=== PATIENT | female | born 1985 | race Two or more races ===

== ENCOUNTER 2019-05-07 07:33 | Outpatient (CLI) | payer MEDICAID ==
--- NOTE | 2019-05-07 11:10 | Ultrasound Report ---
Reason: UTERINE SIZE DATE DISCREPANCY , UNSP. TRI Procedure Date: 05/07/2019 Accession Number: [id number] / [id number] Procedure: US - OB F/U or Repeat CPT Code: FULL RESULT: EXAM: FOLLOW-UP OBSTETRICAL ULTRASOUND EXAM DATE: 05/07/2019 08:50 AM. CLINICAL HISTORY: Uterine size/date discrepancy . COMPARISON: None. TECHNIQUE: Real-time sonographic evaluation of the fetus performed by the escort service attendant. Multiple pharmaceutical specialty representative static images were saved for review. DATING: Established EGA 33 weeks 6 days with CHRIS 06/19/2019 based on working due date. EGA 34 weeks 6 days with CHRIS 06/12/2019 based on the current ultrasound. GENERAL EVALUATION Recio . Cardiac activity: 135 bpm. movement: Visualized. Presentation: Cephalic. Placenta: Anterior position. Amniotic fluid: Normal. JAMES 13 cm. MVP 5.5 cm. BIOMETRY Bi-Parietal Diameter (BPD): 8.4 cm, 33 weeks 6 days Head Circumference (HC): 32.9 cm, 37 weeks 3 days Abdominal Circumference (AC): 32 cm, 36 weeks 0 days Femur Length (FL): 6.2 cm, 32 weeks 2 days Estimated Weight: 2552 g, 75th percentile for 33 weeks 6 days. MATERNAL STRUCTURES Cervix is long and closed, 5.2 cm. IMPRESSION: 1. Recio live intrauterine with gestational age 33 weeks 6 days based on working due date. 2. Estimated weight is within expected limits for assigned dating. RADIA
== END 2019-05-07 07:34 | disposition home or self-care (01) ==
LOC: DI 07:33
PROVIDERS: ATTEND Obstetrics & Gynecology
DX: O26.843 Uterine size-date discrepancy, third trimester (principal); Z3A.33 33 weeks gestation of pregnancy
CPT/HCPCS: 76816

== ENCOUNTER 2019-05-16 10:39 | Outpatient (CLI) | payer MEDICAID | END 2019-05-16 23:59 | disposition home or self-care (01) | LOC: LAB.R 10:39 | PROVIDERS: ATTEND Obstetrics & Gynecology | DX: O09.523 Supervision of elderly multigravida, third trimester (principal) | CPT/HCPCS: 87797 ==

== ENCOUNTER 2019-06-16 15:32 | Outpatient (CLI) | payer MEDICAID ==
[2019-06-16 15:50] VITALS: BP 122/86
--- NOTE | 2019-06-21 04:34 | PROCEDURE REPORT ---
- HPI Current EDU 06/19/19 Gestation 39 Weeks and 4 Days 2 Para 1 Vital Signs Temperature 98.2 F 06/16/19 15:49 Heart Rate 83 06/16/19 15:49 Respiratory Rate 16 06/16/19 15:49 Blood Pressure 122/86 H 06/16/19 15:49 O2 Saturation 100 06/16/19 15:49 Temperature 98.2 F 06/16/19 15:49 Heart Rate 83 06/16/19 15:49 Respiratory Rate 16 06/16/19 15:49 Blood Pressure 122/86 H 06/16/19 15:49 O2 Saturation 100 06/16/19 15:49 - NST Procedure NST Procedure Start Date 06/16/19 Start Time 15:45 Stop Time 15:15 Vibroacoustic Stimulation Used No Patient States Movement Yes EFM 135 mod lyubov 15x15 accels no decels TOCO: quiet - Results and Plan Findings/Impression: Cat I tracing Plan: DC to home Warning signs reviewed Routine OB Fu
== END 2019-06-16 16:19 | disposition home or self-care (01) ==
LOC: WFO 15:32 → FBP 15:33 → WFO 16:19
PROVIDERS: ATTEND Obstetrics & Gynecology
DX: O09.523 Supervision of elderly multigravida, third trimester (principal); Z53.9 Procedure and treatment not carried out, unspecified reason
CPT/HCPCS: 59025

== ENCOUNTER 2019-06-18 05:47 | Inpatient (IN) | payer MEDICAID ==
[~2019-06-18 05:47] MED LIST: LACTATED RINGERS 1,000 ML IV SCH
[2019-06-18] MEDS ORDERED: SODIUM CHLORIDE FLUSH 0.9% 10 ML SYRINGE ONE (06:19)
[2019-06-18 07:10] LABS: BASOPHILS # (AUTO) 0.1 10^3/uL (0.0-0.1); BASOPHILS % (AUTO) 0.6 %; EOSINOPHILS # (AUTO) 0.1 10^3/uL (0.0-0.7); EOSINOPHILS % (AUTO) 1.1 %; HGB - HEMOGLOBIN 11.3 g/dL (12.0-16.0); LYMPHOCYTES # (AUTO) 1.8 10^3/uL (1.5-3.5); LYMPHOCYTES % (AUTO) 21.6 %; MEAN CORPUSCULAR HEMOGLOBIN 29.9 pg (27.0-31.0); MEAN CORPUSCULAR HGB CONC 33.7 g/dL (32.0-36.0); MEAN CORPUSCULAR VOLUME 88.6 fL (81.0-99.0); MEAN PLATELET VOLUME 10.8 fL (7.9-10.8); MONOCYTES # (AUTO) 0.5 10^3/uL (0.0-1.0); MONOCYTES % (AUTO) 5.7 %; NEUTROPHILS # (AUTO) 5.9 10^3/uL (1.5-6.6); NEUTROPHILS % (AUTO) 70.6 %; PLT - PLATELET COUNT 222 10^3/uL (130-450); RED BLOOD COUNT 3.78 10^6/uL (4.20-5.40); RED CELL DISTRIBUTION WIDTH 13.4 % (12.0-15.0); WHITE BLOOD COUNT 8.3 x10^3/uL (4.8-10.8)
[2019-06-18] MEDS ORDERED: CITRIC ACID/SODIUM CITRATE 15 ML UDC PO ONE ×2 (07:47→11:44)
--- NOTE | 2019-06-18 07:50 | ANESTHESIA ---
Pre-Anesthesia VS, & Labs - Diagnosis Previous C section - Procedure Repeat C section Height 5 ft 4 in Weight (kg) 86.183 kg - NPO >8 hours - Is Patient ?: Yes - Lab Results Current Lab Results: Laboratory Tests 06/18/19 06:50: WBC 8.3, RBC 3.78 L, Hgb 11.3 L, Hct 33.5 L, MCV 88.6, MCH 29.9, MCHC 33.7, RDW 13.4, Plt Count 222, MPV 10.8, Neut # (Auto) 5.9, Lymph # (Auto) 1.8, [place] # (Auto) 0.5, Eos # (Auto) 0.1, Baso # (Auto) 0.1, Absolute Nucleated RBC 0.00, Nucleated RBC % 0.0 Lab results reviewed: Yes Fish Bones: 06/18/19 06:50 Home Medications and Allergies Active Medications Cefazolin Sodium 2 gm/ Sodium (Chloride) 100 mls @ 200 mls/hr IV ONCE ONE Stop: 06/18/19 08:59 Lactated Ringer's (Lr) 1,000 mls @ 125 mls/hr IV .Q8H HILARIA Allergies/Adverse Reactions: Allergies Allergy/AdvReac Type Severity Reaction Status Date / Time No Known Drug Allergies Allergy Verified 06/16/19 15:47 Anes History & Medical History - Anesthetic History Anesthesia Complications: reports: No previous complications Family history of Anesthesia Complications: Denies Family history of Malignant Hyperthermia: Denies - Medical History Cardiovascular: reports: None Pulmonary: reports: None Gastrointestinal: reports: None Urinary: reports: None Neuro: reports: None Musculoskeletal: reports: None Endocrine/Autoimmune: reports: None Blood Disorders: reports: None Skin: reports: None Smoking Status: Former smoker Psychosocial: reports: No issues indicated - Surgical History General: Appendectomy, Other (Breast implants) Exam General: Alert Dental: WNL Mouth Openin Fingerbreadth Neck Mobility: Normal Mallampati classification: II Thyromental Distance: greater than 6 cm Respiratory: Lungs clear Cardiovascular: Regular rate Mental/Cognitive Status: Alert/Oriented X3 Cognitive Status: Within normal limits Plan Anesthesia Type: Spinal Consent for Procedure(s) Verified and Reviewed: Yes Code Status: Attempt Resuscitation ASA classification: 2-Mild systemic disease Is this case an emergency?: No
[2019-06-18] MEDS ORDERED: ceFAZolin 2 GM in SODIUM CHLORIDE 0.9% 100ML 100 ML IV ONE (08:30)
--- NOTE | 2019-06-18 08:38 | SURGERY HX AND PHYSICAL(T) ---
Surgical History & Physical - Chief Complaint/HPI History of Present Illness: CC: OB visit HPI: patient is here to see Dr Membreno for OB follow up. patient is here to PreOp on C section. patient reported clear discharge, back pain, with alot of pressure. patient report decrease in baby movement ...................................................................Nguyen Yeboah LPN June 16, 2019 3:02 PM Ms Wiggins presents for preop assessment for repeat scheduled for 06/18/19 She reports decreased movement. Baby is active, but less than usual. No contractions, VB, or LOF. No significant changes in health hx since time of prior exam. Current Allergies: No Known Allergies Current Meds: TUMS 500 MG ORAL TABLET CHEWABLE (CALCIUM CARBONATE ANTACID) Take on tablet by mouth as needed; Route: ORAL COMPLETE TABLET ( VIT-FE FUMARATE-FA TABS) Take one tablet by mouth once daily Risk Factors: Smoked Tobacco Use: Never smoker Smokeless Tobacco Use: Never Passive Smoke Exposure: no HIV High Risk Behavior: no Exercise: yes Times/wk: 8+ Type of Exercise: walking Seatbelt Use: 100 % Sun Exposure: rarely Alcohol Use: no Drug Use: no Vital Signs: Patient Profile: 34 Years Old Female Height: 66 inches Weight: 197.0 pounds BMI: 31.91 BP sittin / 75 Pt. in pain? no Vitals Entered By: Nguyen Yeboah LPN (June 16, 2019 3:02 PM) Meds Reviewed: Done Allergies Reviewed: Done Past Surgical History: Appendectomy (2011) Breast Reconstruction Flowsheet View for Follow-up Visit Estimated weeks of gestation: 39 4/7 Weight: 197.0 Blood pressure: 120 / 75 Fundal height: 40 FHR: 135 Vaginal bleeding: no Vaginal discharge: no activity: dec Labor symptoms: no position: vertex Next visit: 3 d SPANISH SPEAKING NANNY Review of Systems ROS Comments: As per HPI, otherwise remaining systems are negative. Physical Constitutional: alert, no acute distress. Skin: normal turgor, normal color. Head: atraumatic, normocephalic. Cardiovascular: RRR, no murmurs. Respiratory: no respiratory distress, clear to auscultation. Abdomen: gravid, S&NT Neurologic: normal. Psych: affect and mood appropriate, normal interaction. Impression & Recommendations: Problem # 1: Preop exam (ICD-V72.84) (ORD67-J84.818) Ms Emeli Nieves presented for preop exam for She declines certified court interpreter Risks, benefits, alternatives reviewed Consents for blood tranfusion as indicated obtained Consent for repeat obtained Cefazolin 2g IV OCTOR Orders: 050F - SUBSEQUENT VISIT (CPT-0502F) Problem # 2: Supervision of elderly multigravida, third trimester (ICD-V23.82) (AHV40-C38.523) Boy--> Jose ? A neg/ Rub imm IS wnl FAS wnl and normal echo US 05/07/19: vertex and 76%ile Glucola 168. --> I have reviewed the records and cannot find results for 3h OGTT Rhogam given 03/25/19 Unclear TDaP was received GBS neg Quantiferone Gold positive with a negative CXR Last pap 11/26/18 CS scheduled for 06/18/19 Intent for sterilization noted on page 49 of scanned outside records. May need [facility] consents prior to BTL Orders: 0502F - SUBSEQUENT VISIT (CPT-0502F) - PMH/PSH/Social Hx Neurological History: None Cardiovascular: None Respiratory: None Skin: None Endocrine/Autoimmune: None Gastrointestinal: None Urinary: None Musculoskeletal: None Blood Disorders: None General: Appendectomy, Other (Breast implants) Smoking Status: Former smoker - Home Meds and Allergies Allergies/Adverse Reactions: Allergies Allergy/AdvReac Type Severity Reaction Status Date / Time No Known Drug Allergies Allergy Verified 06/16/19 15:47 - Vital Signs O2 Saturation: 100 Weight (kg): 86.183 kg Height: 5 ft 4 in - Patient Review Patient Review: Problems were reviewed with the patient during this visit. Medications were reviewed with the patient during this visit. Allergies were reviewed this patient during this visit. Pertinent Tests Reviewed: All pertitent test for this patient were reviewed.
[2019-06-18] MEDS ORDERED: LACTATED RINGERS 1,000 ML IV ONE ×2 (09:24→20:50)
[2019-06-18] MEDS ORDERED: OXYTOCIN/DEXTROSE 5 % 30 UNIT/500 ML BAG IV PRN (10:16)
[2019-06-18] MEDS ORDERED: SODIUM CHLORIDE FLUSH 0.9% 10 ML SYRINGE IVP PRN (10:16)
[2019-06-18] MEDS ORDERED: ONDANSETRON 4 MG/2 ML VIAL IVP PRN (10:16)
[2019-06-18] MEDS: SODIUM CHLORIDE FLUSH 0.9% 10 ML SYRINGE IVP SCH ×2 (13:38→15:29)
--- NOTE | 2019-06-18 13:49 | OPERATIVE REPORT ---
DATE OF SERVICE: 06/18/2019 Physician: Byron Gutierrez DO PREOPERATIVE DIAGNOSES 1. Intrauterine at 39 weeks 6 days gestation. 2. Previous section. POSTOPERATIVE DIAGNOSES 1. Delivery at 39 weeks 6 days gestation. 2. Previous section. PROCEDURE: Repeat section with low transverse incision, delivery of a viable male w ith Apgars of 9 and 9. SURGEON: Byron Gutierrez DO RAGMAN: Joann Membreno MD who assisted with draping, retraction. ANESTHESIA: Spinal anesthetic. ESTIMATED BLOOD LOSS: 700 mL WOUND CLASSIFICATION: 1. Sponge count, needle counts were correct. HISTORY: For the clinical history, please see the H and P. SURGICAL FINDINGS: The uterus was densely adhesed to the anterior peritoneal surface. No other dist inct abnormalities were appreciated other than that. DESCRIPTION OF PROCEDURE: The patient was taken to the operative suite, placed on the surgical table in supine position under spinal anesthesia, rolled blanket was placed under the right hip. The roby ent was then prepped and draped in the usual fashion. After an appropriate timeout took place, a Pfa nnenstiel incision was then made with sharp dissection to the skin, both electrocautery and blunt dis section were then used to the level of fascia. The fascia was then incised transversely. The rectus musculature was then dissected free from the overlying rectus fascia using sharp and blunt dissectio n. A central muscle split was then performed. The peritoneal cavity was entered using a double hemo stat technique and incised vertically. The bladder blade was then placed over the lower pole of the incision. The serosa overlying the lower uterine segment was then incised transversely and a small b ladder flap developed. The myometrium was then scored with a scalpel blade and the amniotic cavity e ntered with blunt dissection. This revealed now clear amniotic fluid. The surgeon's fingers were pl aced in the wound and guided a bandage scissors to make a low transverse incision in the lower uterin e segment. The surgeon's hand was then placed into the wound and with gentle fundal pressure, the fe td head was elevated through the wound. A nuchal cord x1 was noted and reduced. The rest of the ne buster was then delivered with gentle fundal pressure and gentle traction. Upon full delivery of the , the was crying lustily and moving all of its limbs. Delayed cord clamping took plac e for 30 seconds. After this, the cord was doubly clamped and cut, and the passed off to [facility] nursing personnel and supervisor white sugar in attendance. is a viable male with Apgars of 9 and 9 at 1 and 5 minutes respectively. Weight is pending at this time. A sample of the cord blood was then obtained and sent for evaluation. The placenta was then delivered intact with 3 vessels spontan eously. The uterus was then explored and no retained products of conception were noted. The myometr ial incision was then reapproximated using 0 chromic suture in a running interlocking fashion. A sec ond layer of 0 chromic suture was used in a running simple fashion to imbricate the first layer. The re was a small area of oozing in the left lateral portion of the incision approximately 3 cm from the left lateral pole of the incision. This was rendered hemostatic with a single [id number] sutur e of 0 chromic suture. The paracolic gutters were then cleared of all blood clots and debris. Becau se of the dense adhesion that was holding the uterus anteriorly, the tubes and ovaries were not visua lized. The myometrial incision was then again viewed for any signs of bleeding, none were noted. He mostasis followed. The rectus fascia was then brought to the midline using 0 chromic suture in a sim ple interrupted fashion, and hemostasis followed. The fascia was then reapproximated using 0 Vicryl suture in a running simple fashion. Hemostasis followed. The skin was closed in a running subcuticu lar fashion using 4-0 Monocryl suture and hemostasis followed. Steri-Strips were placed and sterile dressings were placed and the patient was taken to recovery room in stable condition. TD: 06/18/2019 10:34
[2019-06-18] MEDS: KETOROLAC 30 MG/ML VIAL IVP SCH ×2 (15:28→21:40)
[2019-06-18] MEDS: LACTATED RINGERS 1,000 ML IV SCH ×2 (15:28→20:30)
[2019-06-18] MEDS: ACETAMINOPHEN 500 MG TABLET PO SCH ×2 (18:07→19:09)
[2019-06-19] MEDS: ACETAMINOPHEN 500 MG TABLET PO SCH ×3 (02:22→21:01)
[2019-06-19] MEDS: KETOROLAC 30 MG/ML VIAL IVP SCH ×2 (03:45→09:27)
[2019-06-19] MEDS: LACTATED RINGERS 1,000 ML IV SCH (05:56)
--- NOTE | 2019-06-19 07:53 | PROVIDER PROGRESS NOTE ---
Subjective - Prog Note Date Prog Note Date: 06/19/19 Prog Note Time: 07:51 - Subjective Subjective: The patient is actually doing quite well. She has been up to void since her Rosales was removed. She is breast-feeding without difficulty. She is passing flatus. She is without any other complaint. Objective - Vital Signs/Intake & Output Vital Signs: Vital Signs x48h Temp Pulse Resp BP Pulse Ox 06/19/19 02:00 36.5 C 63 18 100/55 L 99 Intake & Output: Intake & Output 06/16/19 06/17/19 06/18/19 06/19/19 23:59 23:59 23:59 23:59 Intake Total 8958.236 6016.333 Output Total 940 2450 Balance 335.000 -1106.667 - Lab Results Fish Bones: 06/18/19 06:50 Other Labs: Lab Results x24hrs 06/18/19 06/18/19 Range/Units 08:16 06:50 Blood Type A NEGATIVE Blood Type Recheck A NEGATIVE Antibody Screen NEGATIVE - Other Results/Comments Other Results/Comments: Lungs: Lungs are clear to auscultation bilaterally without wheezes, Rales or rhonchi Heart: Heart has a regular rate and rhythm without murmur Abdomen: The abdomen is soft, pliable and nontender. Normoactive bowel sounds are noted. The uterus is firm approximately 2 fingerbreadths below the umbilicus. Incision: The incision is clean and dry without infection. It is well approximated. The Steri-Strips are intact. Assessment/Plan - Problem List (1) Impression: Impression: Postoperative/ day #1-stable Plan: The patient will continue to recover today. She will be allowed to ambulate. We will remove her IV. She will be allowed to shower.
[2019-06-19] MEDS ORDERED: SODIUM CHLORIDE FLUSH 0.9% 10 ML SYRINGE ONE (09:40)
[2019-06-19] MEDS: DOCUSATE SODIUM 100 MG CAPSULE PO SCH ×2 (12:51→21:01)
[2019-06-19] MEDS: IBUPROFEN 600 MG TABLET PO SCH (16:00)
[2019-06-20] MEDS: IBUPROFEN 600 MG TABLET PO SCH ×4 (00:17→21:00)
[2019-06-20] MEDS: oxyCODONE 5 MG TABLET PO PRN ×3 (04:10→17:52)
[2019-06-20] MEDS: ACETAMINOPHEN 500 MG TABLET PO SCH ×2 (06:01→17:52)
[2019-06-20] MEDS: DOCUSATE SODIUM 100 MG CAPSULE PO SCH ×3 (12:48→21:00)
[2019-06-21] MEDS: ACETAMINOPHEN 500 MG TABLET PO SCH ×3 (01:14→10:14)
--- NOTE | 2019-06-21 02:16 | PROVIDER PROGRESS NOTE ---
Subjective - Prog Note Date Prog Note Date: 06/20/19 Prog Note Time: 09:30 - Subjective Pt reports feeling: Improved Subjective: Client is up and ambulating. Tolerating p.o. Pain is well managed. She is voiding. Breast-feeding is going well she is ready for discharge. It is unclear whether baby will be discharged today. Objective - Vital Signs/Intake & Output Vital Signs: Vital Signs x48h Temp Pulse Resp BP Pulse Ox 06/21/19 01:16 97.7 F 85 16 102/59 L 98 06/20/19 20:48 98.4 F 87 18 111/66 98 Intake & Output: Intake & Output 06/18/19 06/19/19 06/20/19 06/21/19 23:59 23:59 23:59 23:59 Intake Total 6272.892 1632.333 1000 750 Output Total 940 2850 Balance 335.000 -7382.355 4510 750 - Objective General Appearance: positive: No acute distress Neck: positive: Nml inspection Respiratory: positive: Chest non-tender, No respiratory distress Cardiovascular: positive: Regular rate & rhythm Abdomen: positive: Other (Fundus is firm below the umbilicus. Incision line is clean dry and intact with Steri-Strips in place) Skin: positive: Color nml Extremities: positive: Non-tender Neurologic/Psychiatric: positive: Oriented x3 - Lab Results Fish Bones: 06/18/19 06:50 Assessment/Plan - Problem List (1) delivery delivered Impression: Postop day 2 status uncomplicated repeat low transverse (2) Impression: Meeting goals for discharge. Pain is well managed with minimal oral pain medi cations. Routine discharge instructions were reviewed. If is not discharged today patient can remain in in house.Discharge orders will be submitted they can be delayed pending disposition. Qualifiers: Weeks of gestation: 39 weeks Qualified Code(s): Z3A.39 - 39 weeks gestation of
[2019-06-21] MEDS: IBUPROFEN 600 MG TABLET PO SCH ×3 (03:09→09:01)
[2019-06-21] MEDS: DOCUSATE SODIUM 100 MG CAPSULE PO SCH ×2 (03:14→09:01)
--- NOTE | 2019-06-21 10:04 | PROVIDER PROGRESS NOTE ---
Subjective - General Admit Date: 06/18/19 Procedure Performed: LTC/S - Review of Systems Wound/Incisions: positive: Healing well, No drainage General: positive: No symptoms HEENT: positive: No symptoms Pulmonary: positive: No symptoms Cardiovascular: positive: No symptoms Gastrointestinal: positive: No symptoms Genitourinary: positive: No symptoms Objective - Patient Data Reviewed Vital Signs: Yes Vital Signs: Vital Signs x48h Temp Pulse Resp BP Pulse Ox 06/21/19 08:15 36.8 C 83 16 108/69 97 Intake & Output: Intake and Output Totals x24h 06/19/19 06/20/19 06/21/19 23:59 23:59 23:59 Intake Total 7259.958 6920 750 Output Total 2850 Balance -7385.402 9391 750 - Lab Results Lab Results: 06/18/19 06:50 - Current Medications Current Medications: Current Medications Generic Name Dose Route Start Last Admin Trade Name Freq PRN Reason Stop Dose Admin Acetaminophen 1,000 mg 06/18/19 11:00 06/21/19 07:35 Tylenol PO Not Given Q8H HILARIA Docusate Sodium 100 mg 06/18/19 11:00 06/21/19 09:01 Colace 100mg Capsule PO 100 mg BID HILARIA Administration Ibuprofen 600 mg 06/19/19 16:00 06/21/19 09:01 Motrin PO 600 mg Q6H HILARIA Administration Oxycodone HCl 10 mg 06/18/19 10:16 06/20/19 17:52 Roxicodone PO 10 mg Q4HR PRN Administration PAIN - Physical Exam Wound/Incisions: positive: Healing well, Dressing dry and intact General Appearance: positive: No acute distress, Alert Respiratory: positive: Chest non-tender, No respiratory distress, Breath sounds nml Cardiovascular: positive: Regular rate & rhythm, No murmur, No gallop Abdomen: positive: Non-tender, No organomegaly, Nml bowel sounds, No distention, Mass (U+1) Extremities: positive: No pedal edema. negative: Calf tenderness, Aixa's sign/cords Impression/Plan - Problem List Problem List: POD # 3 S/P LTCS Send home. Discharge Medications Oxycodone 5 mg #24 Motrin 600 mg tylenol colace 100 mg RTC one week
--- NOTE | 2019-06-21 10:06 | Discharge Plan ---
Discharge Plan Problem Reviewed?: Yes Disposition: Home, Self Care Diet: Regular Shower Restrictions: No Driving Restrictions: Yes (no driving while on narcotics ) No Smoking: If you smoke, Please STOP! Call for help.
[2019-06-21 11:38] VITALS: BP 108/68
[2019-06-21] MEDS ORDERED: KETOROLAC 30 MG/ML VIAL IVP ONE (11:59)
[2019-06-21] MEDS ORDERED: hydrALAZINE INJ 20 MG/ML VIAL IVP ONE (11:59)
[2019-06-21] MEDS ORDERED: ePHEDrine 50 MG/ML VIAL IVP ONE (11:59)
[2019-06-21] MEDS ORDERED: ACETAMINOPHEN 1,000 MG/100 ML 100 ML IV ONE (11:59)
[2019-06-21] MEDS ORDERED: ONDANSETRON 4 MG/2 ML VIAL IVP ONE (11:59)
[2019-06-21] MEDS ORDERED: MORPHINE PF 10 MG/10 ML AMP EPI ONE (11:59)
--- NOTE | 2019-06-21 12:04 | Labor Flowsheet ---
Labor Flowsheet Datetime Report Generated by CPN: 06/21/2019 12:04 Datetime: 06/18/2019 06:02 Temperature (C): 36.9 Datetime: 06/18/2019 06:01 VITAL SIGNS NBP Sys/Bety/Mean (mmHg): 124 : 79 : 88 Pulse: 81
--- NOTE | 2019-07-06 09:15 | DISCHARGE SUMMARY ---
Physician: Chandu Pringle MD DATE OF ADMISSION: 06/18/2019 DATE OF DISCHARGE: 06/21/2019 ADMITTING DIAGNOSES 1. A 34-year-old G2, P1; previous section. 2. At 39.6 weeks. DISCHARGE DIAGNOSES 1. A 34-year-old G2, P1; previous section. 2. At 39.6 weeks. 3. Repeat low transverse section with dense adhesions. 4. Delivery live male infant, Apgars 9 and 9. Rh negative. PROCEDURES 1. Repeat low transverse section. 2. Spinal anesthesia. PRESENTING HABITS: Patient is a 34-year-old G2, P1 female who presents for repeat section. She had numerous OB visits. She denies any complaints or issues. Her labs show her to be A negative, Rubella immune. Fasting blood sugars within normal limits. Ultrasound showed the infant to be 76. However, her Glucola was 168, and a 3-hour GTT was not performed. She had received antinatal RhoGAM. LABORATORIES: CBC on admission showed a white count of 8.3, hemoglobin 11.3, hematocrit of 33.5; platelets were 222. HOSPITAL COURSE: Patient was admitted, taken to the operating room, at which time a repeat low transverse section was performed. During the procedure, she was noted to have dense anterior abdominal wall adhesions. She had an estimated blood loss of 700 mL. The was checked and noted to be Rh negative also. Her diet was advanced, and her blood sugars were taken to check for evidence of elevation. She was discharged to home on the third day postop. She has instructions to follow up in the clinic in 1 week. She was told to call should she develop chills, fevers, temperatures greater than 100.4, or foul smelling vaginal discharge. DISCHARGE MEDICATIONS 1. Oxycodone 5 mg. 2. Motrin 600 mg. 3. Tylenol. 4. Colace. TD: 07/02/2019 12:00 GANGA
== END 2019-06-21 12:00 | disposition home or self-care (01) | DRG 788 ==
LOC: FBP 05:47
PROVIDERS: ADMIT Obstetrics & Gynecology; ATTEND Obstetrics & Gynecology
PROC: 10D00Z1 Extraction of Products of Conception, Low, Open Approach (ICD-10-PCS; principal; 2019-06-18 08:30)
DX: O34.211 Maternal care for low transverse scar from previous cesarean delivery (principal); N85.8 Other specified noninflammatory disorders of uterus; Z3A.39 39 weeks gestation of pregnancy; Z37.0 Single live birth; Z67.41 Type O blood, Rh negative; Z87.891 Personal history of nicotine dependence
CPT/HCPCS: 85025; 86850; 86900; 86901; A9270; J0131; J2274; J7120

== ENCOUNTER 2019-07-08 15:19 | Emergency (ER) | payer MEDICAID ==
[2019-07-08 16:17] LABS: BILIRUBIN,URINE NEGATIVE (NEGATIVE); GLUCOSE, URINE (UA) NEGATIVE (NEGATIVE); KETONES,URINE (UA) NEGATIVE (NEGATIVE); LEUKOCYTE ESTERASE, URINE MODERATE (NEGATIVE); NITRITE,URINE POSITIVE (NEGATIVE); OCCULT BLOOD,URINE SMALL (NEGATIVE); PH,URINE 5.5 PH (5.0-7.5); PROTEIN,URINE 30 mg/dL (NEGATIVE); UROBILINOGEN,URINE 0.2 (NORMAL) E.U./dL (NORMAL)
[2019-07-08 16:21] LABS: CLARITY,URINE CLOUDY (CLEAR)
[2019-07-08 16:28] LABS: BACTERIA,URINE Many /HPF (None Seen); SQUAMOUS EPITHELIAL CELL,UR NONE SEEN (<= Few)
[2019-07-08] MEDS ORDERED: IBUPROFEN 600 MG TABLET PO STA (17:23)
[2019-07-08] MEDS ORDERED: ONDANSETRON ODT 4 MG TABLET TL STA (17:23)
[2019-07-08] MEDS ORDERED: cefUROXime axetil 250 MG TABLET PO STA (17:23)
--- NOTE | 2019-07-08 17:26 | ED Physician Documentation ---
PD HPI ABD PAIN - Stated complaint Stated Complaint: BACK/C SECTION PX - Chief complaint Chief Complaint: Abd Pain - History obtained from History obtained from: Patient, Family - History of Present Illness Timing - onset: Other (34-year-old woman who is 3 weeks out from a . The last 3 days or so she has had right flank pain, chills and nausea as well as dysuria. No increase in vaginal discharge. She has no health problems. She is breast-feeding.) Review of Systems Ten Systems: 10 systems reviewed and negative Constitutional: reports: Chills. denies: Fever GI: reports: Abdominal Pain, Nausea. denies: Vomiting, Diarrhea : reports: Dysuria, Frequency PD PAST MEDICAL HISTORY - Past Medical History Cardiovascular: None Respiratory: None Neuro: None Endocrine/Autoimmune: None GI: None : None Musculoskeletal: None Derm: None - Past Surgical History General: Appendectomy, Other (Breast implants) - Present Medications Home Medications: Ambulatory Orders Medication Instructions Recorded Confirmed Ibuprofen [Motrin] 800 mg PO Q8H PRN #14 tablet 07/08/19 Ondansetron Odt [Zofran] 4 mg TL Q6H PRN #10 tablet 07/08/19 RX: Cefdinir 300 mg PO BID #20 capsule 07/08/19 - Allergies Allergies/Adverse Reactions: Allergies Allergy/AdvReac Type Severity Reaction Status Date / Time No Known Drug Allergies Allergy Verified 06/16/19 15:47 - Social History Smoking Status: Former smoker PD ED PE NORMAL - Vitals Vital signs reviewed: Yes - General General: Alert and oriented X 3, No acute distress - Abdomen Abdomen: Soft, Non tender, Other (She is tender over the right flank, not the abdomen. Pfannenstiel incision looks great.) - Neuro Neuro: Alert and oriented X 3, Normal speech Results - Vitals Vitals: Vital Signs - 24 hr 07/08/19 07/08/19 15:38 17:43 Temperature 36.9 C 36.8 C Heart Rate 100 91 Respiratory 16 20 Rate Blood Pressure 103/60 103/59 L O2 Saturation 100 99 Oxygen O2 Source Room air - Labs Labs: Laboratory Tests 07/08/19 16:06 Urine Color YELLOW Urine Clarity CLOUDY Urine pH 5.5 Ur Specific [place] 1.020 Urine Protein 30 H Urine Glucose (UA) NEGATIVE Urine Ketones NEGATIVE Urine Occult Blood SMALL H Urine Nitrite POSITIVE H Urine Bilirubin NEGATIVE Urine Urobilinogen 0.2 (NORMAL) Ur Leukocyte Esterase MODERATE H Urine RBC 6-10 H Urine WBC >25 H Ur Squamous Epith Cells NONE SEEN Urine Bacteria Many H Ur Microscopic Review INDICATED Urine Culture Comments INDICATED PD MEDICAL DECISION MAKING - ED course ED course: 34-year-old woman a few weeks out from a now with clinical and biochemical pyelonephritis which is treated with third-generation cephalosporins noted that she is breast-feeding. Her vital signs and overall appearance are reassuring without evidence for sepsis. Departure - Departure Disposition: Home, Self Care Clinical Impression: Pyelonephritis Condition: Good Record reviewed to determine appropriate education?: Yes Instructions: Pyelonephritis Dc Prescriptions: RX: Cefdinir 300 mg PO BID #20 capsule Ibuprofen [Motrin] 800 mg PO Q8H PRN #14 tablet PRN Reason: PAIN &/OR FEVER Ondansetron Odt [Zofran] 4 mg TL Q6H PRN #10 tablet PRN Reason: Nausea / Vomiting Comments: We will culture your urine, the results should be done in 48-72 hours. If an antibiotic change is necessary we will call you. Return if worse in the meantime, especially if you develop increasing flank pain, fevers, or cannot keep down the medication. Recheck with your physician in 2 to 3 days. Discharge Date/Time: 07/08/19 17:44
[2019-07-08 17:45] VITALS: BP 103/59
== END 2019-07-08 17:44 | disposition home or self-care (01) ==
LOC: ED 15:19
DX: O86.21 Infection of kidney following delivery (principal); Z87.891 Personal history of nicotine dependence
CPT/HCPCS: 81001; 87086; 87181; 99283; A9270; Q0162; 81003

== ENCOUNTER 2020-12-27 08:00 | Outpatient (CLI) | payer MEDICAID ==
[2020-12-27 18:38] LABS: MUDS CUTOFF CONCENTRATIONS CUTOFF CONC BELOW:
[2020-12-27 18:50] LABS: BILIRUBIN,URINE NEGATIVE (NEGATIVE); GLUCOSE, URINE (UA) NEGATIVE (NEGATIVE); KETONES,URINE (UA) NEGATIVE (NEGATIVE); LEUKOCYTE ESTERASE, URINE NEGATIVE (NEGATIVE); NITRITE,URINE NEGATIVE (NEGATIVE); OCCULT BLOOD,URINE NEGATIVE (NEGATIVE); PH,URINE 7.5 PH (5.0-7.5); PROTEIN,URINE NEGATIVE (NEGATIVE); UROBILINOGEN,URINE 0.2 (NORMAL) E.U./dL (NORMAL)
[2020-12-27 18:58] LABS: BACTERIA,URINE Few /HPF (None Seen); CLARITY,URINE CLEAR (CLEAR); RBC,URINE None Seen /HPF (0-5); SQUAMOUS EPITHELIAL CELL,UR MOD Squamous (<= Few); WBC,URINE 0-3 /HPF (0-5)
[2020-12-27 19:00] LABS: AMPHETAMINE SCREEN,URINE NEGATIVE (NEGATIVE); BARBITURATE SCREEN,UR NEGATIVE (NEGATIVE); BENZODIAZEPINES SCREEN, URINE NEGATIVE (NEGATIVE); COCAINE SCREEN URINE NEGATIVE (NEGATIVE); METHADONE SCREEN, URINE NEGATIVE (NEGATIVE); METHAMPHETAMINES SCREEN, URINE NEGATIVE (NEGATIVE); OPIATE SCREEN, URINE NEGATIVE (NEGATIVE); OXYCODONE SCREEN, URINE NEGATIVE (NEGATIVE); PROPOXYPHENE SCREEN, URINE NEGATIVE (NEGATIVE); THC CANNABINOID SCREEN, URINE NEGATIVE (NEGATIVE); TRICYCLIC ANTIDEPRESSANT,URINE NEGATIVE (NEGATIVE)
== END 2020-12-27 23:59 | disposition home or self-care (01) ==
LOC: LAB.R 08:00
PROVIDERS: ATTEND Obstetrics & Gynecology
DX: O09.529 Supervision of elderly multigravida, unspecified trimester (principal)
CPT/HCPCS: 80306; 81001; 87086

== ENCOUNTER 2021-01-06 15:56 | Outpatient (CLI) | payer MEDICAID ==
--- NOTE | 2021-01-07 08:58 | Ultrasound Report ---
PROCEDURE: OB First Trimester w/TV INDICATIONS: SUPERVISION OF ELDERLY MULTIGRAVIDA OUTSIDE/PRIOR DATING DATA: Last menstrual period (LMP): 11/11/2020. LMP-based estimated date of delivery (CHRIS): 08/18/2021. First dating scan (date and location): 01/06/2021. Estimated date of delivery (CHRIS) from first dating scan: 08/14/2021. TECHNIQUE: Real-time scanning was performed of the fetus and maternal pelvic organs, with image documentation. Endovaginal scanning was also performed to better visualize the fetus and maternal ovaries. COMPARISON: None. FINDINGS: Embryo: Jetmore-rump length measures 1.95 cm, corresponding to gestational age of 8 weeks 4 days. Fet al heart rate 166 BPM. Yolk sac is seen. Small perigestational hemorrhage measuring 3.6 x 2.8 x 2.1 c m. Cervix is closed. Measurement variability in dating: +/- 4 weeks by LMP, +/- 7 days by mean sac diameter (use before 6 weeks gestation if crown-rump length not able to be measured), +/- 5 days by crown-rump length (6-12 weeks gestation). Maternal organs: Ovaries are within normal limits. Right ovary simple appearing cyst measuring 3 cm. Left ovarian corpus luteum. Small myometrial calcification measuring up 0.4 cm with posterior acoust ic shadowing. Uterus measures 12.2 x 7.4 x 6.5 cm, volume of 307 cc. IMPRESSION: 1. Reico living intrauterine at 8 weeks 4 days based on today's crown-rump length. 2. Small perigestational hemorrhage. 3. Simple right ovarian cyst measuring 3 cm. 4. Uterus is prominent in size. Reviewed by: Gerardo Ling MD on 01/07/2021 8:57 AM PST Approved by: Gerardo Ling MD on 01/07/2021 8:57 AM PST Station ID: [id number]
== END 2021-01-06 15:57 | disposition home or self-care (01) ==
LOC: DI 15:56
PROVIDERS: ATTEND Advanced Practice Midwife
DX: O46.8X1 Other antepartum hemorrhage, first trimester (principal); N83.291 Other ovarian cyst, right side; N85.2 Hypertrophy of uterus; Z3A.08 8 weeks gestation of pregnancy

== ENCOUNTER 2021-01-25 08:00 | Outpatient (CLI) | payer MEDICAID ==
[2021-01-27 00:14] LABS: CHLAMYDIA TRACHOMATIS DNA NEGATIVE (NEGATIVE); NEISSERIA GONORRHOEAE DNA NEGATIVE (NEGATIVE); TRICHOMONAS VAGINALIS DNA NEGATIVE (NEGATIVE)
== END 2021-01-25 23:59 ==
LOC: LAB.R 08:00
PROVIDERS: ATTEND Obstetrics & Gynecology
DX: Z11.3 Encounter for screening for infections with a predominantly sexual mode of transmission (principal)
CPT/HCPCS: 87491; 87591; 87661

== ENCOUNTER 2021-02-03 08:23 | Outpatient (CLI) | payer MEDICAID ==
[2021-02-03 08:40] LABS: BASOPHILS % (AUTO) 0.6 %; EOSINOPHILS # (AUTO) 0.1 10^3/uL (0.0-0.7); EOSINOPHILS % (AUTO) 1.3 %; HGB - HEMOGLOBIN 12.2 g/dL (12.0-16.0); LYMPHOCYTES # (AUTO) 1.7 10^3/uL (1.5-3.5); LYMPHOCYTES % (AUTO) 25.5 %; MEAN CORPUSCULAR HEMOGLOBIN 29.5 pg (27.0-31.0); MEAN CORPUSCULAR HGB CONC 33.9 g/dL (32.0-36.0); MEAN PLATELET VOLUME 9.9 fL (7.9-10.8); MONOCYTES # (AUTO) 0.2 10^3/uL (0.0-1.0); MONOCYTES % (AUTO) 3.1 %; NEUTROPHILS # (AUTO) 4.7 10^3/uL (1.5-6.6); NEUTROPHILS % (AUTO) 69.4 %; PLT - PLATELET COUNT 259 10^3/uL (130-450); RED BLOOD COUNT 4.14 10^6/uL (4.20-5.40); RED CELL DISTRIBUTION WIDTH 14.4 % (12.0-15.0); WHITE BLOOD COUNT 6.8 x10^3/uL (4.8-10.8)
[2021-02-04 08:12] LABS: HIV AG/AB 4TH GEN NON-REACTIVE (NON-REACTIVE)
[2021-02-04 11:31] LABS: HEPATITIS B SURFACE ANTIGEN NON-REACTIVE (NON-REACTIVE); HEPATITIS C ANTIBODY NON-REACTIVE (NON-REACTIVE)
== END 2021-02-03 23:59 | disposition home or self-care (01) ==
LOC: LAB 08:23
PROVIDERS: ATTEND Obstetrics & Gynecology
DX: Z36.89 Encounter for other specified antenatal screening (principal); O09.529 Supervision of elderly multigravida, unspecified trimester
CPT/HCPCS: 36415; 81220; 81243; 81329; 81599; 85025; 86592; 86762; 86787; 86803; 86850; 86900; 86901; 87340; 87389

== ENCOUNTER 2021-03-24 19:15 | Outpatient (CLI) | payer MEDICAID ==
--- NOTE | 2021-03-25 09:05 | Ultrasound Report ---
PROCEDURE: OB Detailed Eval INDICATIONS: SUPERVIISION OF ELDERLY MULTIGRAVIDA UNSPEC TRIMES OUTSIDE/PRIOR DATING DATA: Last menstrual period (LMP): 11/11/2020. LMP-based estimated date of delivery (CHRIS): 08/18/2021. First dating scan (date and location): 01/06/2021. Estimated date of delivery (CHRIS) from first dating scan: 08/14/2021. The below data below was generated using the provider stated CHRIS of 08/18/2021 TECHNIQUE: Real-time scanning was performed of the fetus, with image documentation and biometric measurements. Endovaginal scanning: None indicated COMPARISON: 01/06/2021 FINDINGS: General: A single living intrauterine gestation is present. Presentation: Cephalic Placenta: Placental position is posterior, without previa. Amniotic fluid index: 12.2 cm, 50th percentile for gestational age. heart rate: 171 beats per minute. Maternal cervical canal: 4.87 cm long and is closed; normal length is 2.5 cm or more. biometrics: Biparietal diameter: 4.38 cm, 19 weeks, 2 days Head circumference: 16.56 cm, 19 weeks, 2 days Abdominal circumference: 14.96 cm, 20 weeks, 1 day Femur length: 3.16 cm, 19 weeks, 6 days Estimated gestational age from initial scan: 19 weeks, 0 days Composite gestational age from present scan: 19 weeks, 4 days Estimated weight and percentile: 321.5 g, 92.1 percentile. chest, bilateral kidneys, stomach and urinary bladder are visualized and show no gross abnormal ity. IMPRESSION: 1. Single live intrauterine with fetus in cephalic presentation. heart rate is 171 bp m. 2. JAMES is 12.2 cm which is at 50th percentile for gestational age. 3. Estimated weight is 321.5 g, which is at 92.1% for gestational age. Reviewed by: Clayton Logan MD on 03/25/2021 9:03 AM PDT Approved by: Clayton Logan MD on 03/25/2021 9:03 AM PDT Station ID: [id number]
== END 2021-03-24 19:16 | disposition home or self-care (01) ==
LOC: DI 19:15
PROVIDERS: ATTEND Obstetrics & Gynecology
DX: O09.522 Supervision of elderly multigravida, second trimester (principal); Z3A.19 19 weeks gestation of pregnancy

== ENCOUNTER 2021-05-19 08:30 | Outpatient (CLI) | payer MEDICAID ==
[2021-05-19 10:09] LABS: HCT - HEMATOCRIT 31.7 % (37.0-47.0); HGB - HEMOGLOBIN 10.8 g/dL (12.0-16.0); MEAN CORPUSCULAR HEMOGLOBIN 30.9 pg (27.0-31.0); MEAN CORPUSCULAR HGB CONC 34.1 g/dL (32.0-36.0); MEAN CORPUSCULAR VOLUME 90.8 fL (81.0-99.0); MEAN PLATELET VOLUME 9.9 fL (7.9-10.8); RED BLOOD COUNT 3.49 10^6/uL (4.20-5.40); RED CELL DISTRIBUTION WIDTH 12.6 % (12.0-15.0); WHITE BLOOD COUNT 8.7 x10^3/uL (4.8-10.8)
== END 2021-05-19 08:31 | disposition home or self-care (01) ==
LOC: LAB 08:30
PROVIDERS: ATTEND Obstetrics & Gynecology
DX: Z36.8A Encounter for antenatal screening for other genetic defects (principal); O09.529 Supervision of elderly multigravida, unspecified trimester
CPT/HCPCS: 36415; 82950; 85027; 86850

== ENCOUNTER 2021-05-27 08:07 | Outpatient (CLI) | payer MEDICAID ==
[2021-05-27 08:53] LABS: GTT GLUCOSE,FASTING 108 mg/dL (70-100)
== END 2021-05-27 08:08 | disposition home or self-care (01) ==
LOC: LAB 08:07
PROVIDERS: ATTEND Obstetrics & Gynecology
DX: O09.529 Supervision of elderly multigravida, unspecified trimester (principal)
CPT/HCPCS: 36415; 82951; 82952

== ENCOUNTER 2021-06-21 10:54 | Outpatient (CLI) | payer MEDICAID | END 2021-06-21 10:55 | disposition home or self-care (01) | LOC: NS 10:54 | PROVIDERS: ATTEND Obstetrics & Gynecology | DX: Z71.3 Dietary counseling and surveillance (principal); O24.419 Gestational diabetes mellitus in pregnancy, unspecified control | CPT/HCPCS: 97802 ==

== ENCOUNTER 2021-06-26 12:48 | Outpatient (CLI) | payer MEDICAID ==
--- NOTE | 2021-06-26 15:52 | Ultrasound Report ---
PROCEDURE: OB F/U or Repeat INDICATIONS: GESTATIONAL DIABESTES OUTSIDE/PRIOR DATING DATA: Last menstrual period (LMP): 11/11/2020. LMP-based estimated date of delivery (CHRIS): 08/18/2021. First dating scan (date and location): 01/06/2021. Estimated date of delivery (CHRIS) from first dating scan: 08/14/2021. The below data below was generated using the provider stated CHRIS of 08/18/2021 TECHNIQUE: Real-time scanning was performed of the fetus, with image documentation and biometric measurements. Endovaginal scanning: Not needed COMPARISON: March 24, 2021 FINDINGS: General: A single living intrauterine gestation is present. Presentation: Vertex Placenta: Placental position is posterior, without previa. Amniotic fluid index: 15.8 cm, normal for gestational age. heart rate: 152 beats per minute. Maternal cervical canal: Not well seen. biometrics: Biparietal diameter: 8.3 cm, 33 weeks 1 day Head circumference: 30.1 cm, 33 weeks 2 days Abdominal circumference: 30.0 cm, 34 weeks 0 days Femur length: 6.1 cm, 31 weeks 5 days Estimated gestational age from initial scan: not applicable. Composite gestational age from present scan: 33 weeks 0 days Estimated weight and percentile: 2145 g, 66th percentile Measurement variability in biometric dating: +/- 10 days from 12-20 weeks gestation, +/- 2 weeks from 20-30 weeks gestation, +/- 3 weeks at 30 weeks gestation or more. Other: nose/lips, kidneys, and spine are unremarkable. No choroid plexus cyst visualized on bertrand ash's study. IMPRESSION: Estimated weight of 2145 g corresponding to the 66th percentile. nose/lips, kidneys, and spine are unremarkable. No choroid plexus cyst visualized on today's st udy. Reviewed by: Tom Pagan on 06/26/2021 2:51 PM MACKENZIE Approved by: Tom Pagan on 06/26/2021 2:51 PM MACKENZIE Station ID: [id number]
== END 2021-06-26 12:49 | disposition home or self-care (01) ==
LOC: DI 12:48
PROVIDERS: ATTEND Obstetrics & Gynecology
DX: O24.419 Gestational diabetes mellitus in pregnancy, unspecified control (principal); Z3A.33 33 weeks gestation of pregnancy

== ENCOUNTER 2021-07-12 11:30 | Outpatient (CLI) | payer MEDICAID ==
[2021-07-12] MEDS ORDERED: ONDANSETRON 4 MG/2 ML VIAL IVP PRN (11:42)
[2021-07-12] MEDS ORDERED: LACTATED RINGERS 1,000 ML IV ONE (11:42)
[2021-07-12] MEDS ORDERED: D5.45NS W/20 MEQ KCL 1,000 ML IV SCH (12:00)
[2021-07-12 12:14] VITALS: BP 102/65
[2021-07-12 12:14] LABS: BASOPHILS % (AUTO) 0.4 %; EOSINOPHILS % (AUTO) 0.1 %; HCT - HEMATOCRIT 36.1 % (37.0-47.0); HGB - HEMOGLOBIN 11.9 g/dL (12.0-16.0); LYMPHOCYTES % (AUTO) 13.3 %; MEAN CORPUSCULAR HEMOGLOBIN 29.5 pg (27.0-31.0); MEAN CORPUSCULAR VOLUME 89.4 fL (81.0-99.0); MEAN PLATELET VOLUME 11.1 fL (7.9-10.8); MONOCYTES # (AUTO) 0.2 10^3/uL (0.0-1.0); MONOCYTES % (AUTO) 3.1 %; NEUTROPHILS # (AUTO) 6.4 10^3/uL (1.5-6.6); NEUTROPHILS % (AUTO) 82.6 %; PLT - PLATELET COUNT 209 10^3/uL (130-450); RED BLOOD COUNT 4.04 10^6/uL (4.20-5.40); RED CELL DISTRIBUTION WIDTH 13.8 % (12.0-15.0); WHITE BLOOD COUNT 7.8 x10^3/uL (4.8-10.8)
[2021-07-12 12:23] LABS: ALBUMIN 3.3 g/dL (3.2-5.5); BILIRUBIN,TOTAL 0.5 mg/dL (0.2-1.0); CALCIUM 8.6 mg/dL (8.5-10.3); CREATININE 0.4 mg/dL (0.4-1.0); POTASSIUM 3.6 mmol/L (3.5-5.0); TOTAL PROTEIN 6.6 g/dL (6.7-8.2)
[2021-07-12 13:00] LABS: BILIRUBIN,URINE NEGATIVE (NEGATIVE); GLUCOSE, URINE (UA) NEGATIVE (NEGATIVE); KETONES,URINE (UA) >=80 mg/dL (NEGATIVE); LEUKOCYTE ESTERASE, URINE MODERATE (NEGATIVE); NITRITE,URINE NEGATIVE (NEGATIVE); OCCULT BLOOD,URINE NEGATIVE (NEGATIVE); PROTEIN,URINE TRACE mg/dL (NEGATIVE); UROBILINOGEN,URINE 0.2 (NORMAL) E.U./dL (NORMAL)
[2021-07-12 13:05] LABS: CLARITY,URINE SL. CLOUDY (CLEAR)
[2021-07-12 13:16] LABS: BACTERIA,URINE Moderate /HPF (None Seen); RBC,URINE 0-5 /HPF (0-5); SQUAMOUS EPITHELIAL CELL,UR MOD Squamous (<= Few); WBC,URINE >25 /HPF (0-5)
--- NOTE | 2021-07-12 13:49 | PROVIDER PROGRESS NOTE ---
- HPI Chief Complaint: GI symptoms Current : Current EDU 08/18/21 Gestation 34 Weeks and 5 Days 3 Para 2 Vital Signs Temperature 97.4 F L 07/12/21 12:10 Heart Rate 77 07/12/21 12:10 Respiratory Rate 18 07/12/21 12:10 Blood Pressure 102/65 07/12/21 12:10 O2 Saturation 100 07/12/21 12:10 Temperature 97.4 F L 07/12/21 12:10 Heart Rate 77 07/12/21 12:10 Respiratory Rate 18 07/12/21 12:10 Blood Pressure 102/65 07/12/21 12:10 O2 Saturation 100 07/12/21 12:10 - Exam 36 yo at 34 5/7 with nausea, vomiting and inablilty to tolerate food or liquids for 2 days. Patient denies fever, cough or any respiratory symptoms. Gestational Diabetes is complicating this . O- General: Patient was sleeping on stretcher. Chest: Clear to auscultation. Good breath sounds in all gu. Heart: RRR without murmur or gallop. Abdomen: Soft, non-tender to palpation, gravid. Appropriate size for gestation. Extremities: No edema, no calf tenderness. All labs are within normal range. Urine is concentrated and has more than the measureable amount of Ketones. Discussed sending her with a Zofran prescription. Patient to get on a BRAT diet and continue bland and non-fat choices for a few days until she becomes able to eat more regular food and she can resume her Diabetic diet. A-IUP 34 5/7 with Nausea and Vomiting and Dizziness for 2-3 days. Gastritis Gestational Diabetes, Advanced Maternal Age, Previous Section. P- Discharge to home with prescription for Zofran. BRAT Diet. Follow-up on Sunday in clinic as scheduled. Return to Diabetic diet as soon as able to tolerate a regular diet without emesis. - Procedures NST Procedure: NST Procedure Start Date 07/12/21 Start Time 11:30 Stop Time 15:15 Patient States Movement Yes NST Baseline of 140 with Moderate variability, Accelerations 15X15. No decelerations. No contractions. Reactive NST and Category I Monitor strip.
== END 2021-07-12 15:00 | disposition home or self-care (01) ==
LOC: WFO 11:30 → FBP 11:32 → WFO 15:00
PROVIDERS: ATTEND Obstetrics & Gynecology
DX: O99.613 Diseases of the digestive system complicating pregnancy, third trimester (principal); K29.70 Gastritis, unspecified, without bleeding; Z3A.34 34 weeks gestation of pregnancy; O24.419 Gestational diabetes mellitus in pregnancy, unspecified control; O09.523 Supervision of elderly multigravida, third trimester; O34.219 Maternal care for unspecified type scar from previous cesarean delivery
CPT/HCPCS: 36415; 59025; 80053; 81001; 85025; 96374; 99214; J7120; 87086

== ENCOUNTER 2021-07-22 09:48 | Outpatient (CLI) | payer MEDICAID | END 2021-07-22 23:59 | disposition home or self-care (01) | LOC: LAB.WC 09:48 | PROVIDERS: ATTEND Obstetrics & Gynecology | DX: Z36.85 Encounter for antenatal screening for Streptococcus B (principal) | CPT/HCPCS: 87797 ==

== ENCOUNTER 2021-08-06 18:09 | Outpatient (CLI) | payer MEDICAID ==
--- NOTE | 2021-08-07 10:02 | Ultrasound Report ---
PROCEDURE: OB F/U or Repeat INDICATIONS: GESTATIONAL DIABETES OUTSIDE/PRIOR DATING DATA: Last menstrual period (LMP): 11/11/2020. LMP-based estimated date of delivery (CHRIS): 08/18/2021. First dating scan (date and location): 01/06/2021. Estimated date of delivery (CHRIS) from first dating scan: 08/18/2021. The below data below was generated using the ultrasound CHRIS of 08/18/2021 TECHNIQUE: Real-time scanning was performed of the fetus, with image documentation and biometric measurements. COMPARISON: 06/26/2021, 03/24/2021, 01/06/2021 FINDINGS: General: A single live intrauterine gestation is present. Presentation: Cephalic Placenta: Placental position is posterior, without previa. Amniotic fluid index: 11.5 cm, within normal limits for gestational age. heart rate: 133 beats per minute. Maternal cervical canal: Not well seen biometrics: Biparietal diameter: 9.3 cm equals 37 weeks 6 days Head circumference: 33.8 cm equals 38 weeks 6 days Abdominal circumference: 34.5 cm equals 38 weeks 3 days Femur length: 7.1 cm equals 36 weeks 3 days Estimated gestational age from initial scan: 38 weeks 2 days Composite gestational age from present scan: 36 weeks 3 days Estimated weight and percentile: 3360 g, 56 percentile Measurement variability in biometric dating: +/- 10 days from 12-20 weeks gestation, +/- 2 weeks from 20-30 weeks gestation, +/- 3 weeks at 30 weeks gestation or more. Other: Not applicable. IMPRESSION: The current estimated weight is 3360 g, 56th percentile Normal interval growth compared to the prior ultrasound examination. No significant abnormality is seen. Reviewed by: Remi Wilkinson MD on 08/07/2021 9:01 AM MACKENZIE Approved by: Remi Wilkinson MD on 08/07/2021 9:01 AM MACKENZIE Station ID: [id number]
== END 2021-08-06 18:10 | disposition home or self-care (01) ==
LOC: DI 18:09
PROVIDERS: ATTEND Obstetrics & Gynecology
DX: O24.419 Gestational diabetes mellitus in pregnancy, unspecified control (principal); Z3A.38 38 weeks gestation of pregnancy

== ENCOUNTER 2021-08-09 17:43 | Outpatient (CLI) | payer MEDICAID ==
[2021-08-09 18:13] LABS: BASOPHILS % (AUTO) 0.5 %; EOSINOPHILS # (AUTO) 0.1 10^3/uL (0.0-0.7); EOSINOPHILS % (AUTO) 0.8 %; HCT - HEMATOCRIT 35.8 % (37.0-47.0); HGB - HEMOGLOBIN 11.9 g/dL (12.0-16.0); LYMPHOCYTES # (AUTO) 1.6 10^3/uL (1.5-3.5); LYMPHOCYTES % (AUTO) 24.4 %; MEAN CORPUSCULAR HEMOGLOBIN 29.5 pg (27.0-31.0); MEAN CORPUSCULAR HGB CONC 33.2 g/dL (32.0-36.0); MEAN CORPUSCULAR VOLUME 88.8 fL (81.0-99.0); MEAN PLATELET VOLUME 11.2 fL (7.9-10.8); MONOCYTES # (AUTO) 0.4 10^3/uL (0.0-1.0); MONOCYTES % (AUTO) 6.4 %; NEUTROPHILS # (AUTO) 4.5 10^3/uL (1.5-6.6); NEUTROPHILS % (AUTO) 67.6 %; PLT - PLATELET COUNT 199 10^3/uL (130-450); RED BLOOD COUNT 4.03 10^6/uL (4.20-5.40); RED CELL DISTRIBUTION WIDTH 14.2 % (12.0-15.0); WHITE BLOOD COUNT 6.6 x10^3/uL (4.8-10.8)
== END 2021-08-09 17:44 | disposition home or self-care (01) ==
LOC: LAB 17:43
PROVIDERS: ATTEND Obstetrics & Gynecology
DX: Z30.2 Encounter for sterilization (principal); O34.211 Maternal care for low transverse scar from previous cesarean delivery
CPT/HCPCS: 36415; 85025; 86850; 86900; 86901; 86920

== ENCOUNTER 2021-08-11 05:32 | Inpatient (IN) | payer MEDICAID ==
[2021-08-11] MEDS ORDERED: ceFAZolin 2 GM in SODIUM CHLORIDE 0.9% 100ML 100 ML IV ONE ×2 (07:00→07:08)
[2021-08-11] MEDS ORDERED: ACETAMINOPHEN 500 MG TABLET PO ONE (07:00)
[2021-08-11] MEDS ORDERED: ONDANSETRON 4 MG/2 ML VIAL ONE (07:14)
--- NOTE | 2021-08-11 07:15 | ANESTHESIA ---
Pre-Anesthesia VS, & Labs - Diagnosis previous c/s - Procedure repeat c/s w/BTL Vital Signs: Temp Pulse Resp BP Pulse Ox 36.9 C 85 18 124/81 H 08/11/21 05:50 08/11/21 05:50 08/11/21 05:50 08/11/21 05:50 Height: 5 ft 6.14 in Weight (kg): 89.811 kg Body Mass Index: 31.8 BMI Classification: Obese - NPO >8 hours - Is Patient ?: Yes - Lab Results Current Lab Results: Laboratory Tests 08/11/21 05:58: POC Whole Bld Glucose 80 Lab results reviewed: Yes Home Medications and Allergies Active Medications Cefazolin Sodium 2 gm/ Sodium (Chloride) 100 mls @ 200 mls/hr IV ONCE ONE Stop: 08/11/21 07:29 Lactated Ringer's (Lr) 1,000 mls @ 0 mls/hr IV .Q0M HILARIA Last Admin: 08/11/21 06:05 Dose: 100 mls/hr Documented by: No122/Iron/Folic Acid [ Multi Tablet] 1 each PO DAILY 06/21/21 Allergies/Adverse Reactions: Allergies Allergy/AdvReac Type Severity Reaction Status Date / Time No Known Drug Allergies Allergy Verified 06/16/19 15:47 Anes History & Medical History - Anesthetic History Anesthesia Complications: reports: No previous complications Family history of Anesthesia Complications: Denies Family history of Malignant Hyperthermia: Denies - Medical History Cardiovascular: reports: None Pulmonary: reports: None Gastrointestinal: reports: None Urinary: reports: None Neuro: reports: None Musculoskeletal: reports: None Endocrine/Autoimmune: reports: None Blood Disorders: reports: None Skin: reports: None Smoking Status: Former smoker - Surgical History General: reports: Appendectomy, Other Gynecologic: reports: section Exam General: Alert, Oriented x3, Cooperative Dental: WNL Mouth Openin Fingerbreadth Neck Mobility: Normal Mallampati classification: II Thyromental Distance: 4-6 cm Respiratory: Lungs clear, Normal breath sounds, No respiratory distress Cardiovascular: Regular rate Neurological: Normal speech Mental/Cognitive Status: Alert/Oriented X3, Normal for patient Cognitive Status: Within normal limits Plan Anesthesia Type: Spinal, Transverse Abdominis Plane (TAP) Block (possible) Consent for Procedure(s) Verified and Reviewed: Yes Code Status: Attempt Resuscitation ASA classification: 2-Mild systemic disease Is this case an emergency?: No
[2021-08-11] MEDS ORDERED: MORPHINE PF 5 MG/10 ML VIAL ONE (07:16)
[2021-08-11] MEDS ORDERED: fentaNYL 100 MCG/2 ML VIAL ONE (07:19)
--- NOTE | 2021-08-11 07:23 | HISTORY & PHYSICAL EXAMINATION ---
History and Physical - History and Physical HPI: 36-year-old -0-0-2 at 39 weeks 0 days gestation by LMP consistent with 8-week ultrasound presenting for repeat low-transverse section. She presents today in good health with no contractions, leaking, bleeding. No headache, change in vision, right upper quadrant pain. Complications complicated by A1 gestational diabetes, controlled with diet and exercise. PMH No significant PSH section x2 Appendectomy Breast reduction OB History -0-0-2 1. 11/08/2011, 42 weeks, section 2. 06/18/2019, 39 weeks, repeat low transverse section SH Denies tobacco, alcohol, drugs Family History mother: Hypertension Father: Hypertension, hypercholesterolemia Allergies No known drug allergies Medications vitamins Labs Blood type: A Rhesus (D) type: Negative Antibody screen: Negative Initial H/H: 11.9/35.8. Plt: 199 Rubella: Immune HBsAg: Negative RPR/AB-EIA: Negative HIV: Negative Gonorrhea: Negative Chlamydia: Negative 50 gm OGCT: 172 3hr GTT: Less than 108/195/126/113 GBS: Positive Temp Pulse Resp BP Pulse Ox 98.4 F 85 18 124/81 H 08/11/21 05:50 08/11/21 05:50 08/11/21 05:50 08/11/21 05:50 Physical exam: General: Alert, oriented, no acute distress Head: Normal cephalic atraumatic Eyes: PERRLA, extraocular motions intact. Respiratory: Normal rate of respiration. No accessory muscle use, normal respiratory effort. Cardiovascular: Regular rate and rhythm Abdomen: Gravid, nontender, nondistended Extremities: Normal range of motion Neuro: Oriented x3. Normal movements Psych: Appropriate mood and affect. Norml judgment and insight NST: 140 beats minute baseline, moderate variability, accelerations present, no decelerations. Category 1. Cody: Quiescent Assessment and plan 36-year-old -0-0-2 at 39 weeks 0 days gestation here for repeat low- transverse section 1. 39 weeks gestation -Admit to L&D, admit labs, plan for repeat section. 2 g cefazolin preoperatively. -Reviewed risks/benefits/alternatives to and BTL Risks include, but are not limited to, bleeding, infection, damage to neatby tissue and organs. On average, EBL of up to 1 liter is considered within normal limits for CS. Risks of blood transfusion include infection Risk of HIV 1/2million nationwide Risk of Hepatitis 1/1 million Risks of transfusion reaction Infection risk moderate given clean/contaminated nature of procedure and IV antibiotics will be given. Damage to nearby tissue and organs including bladder, bowel, ureters, blood vessels, nerves, and fetus Damage may be noted intra-op and may be delayed until after the procedure is complete Reviewed management of complications and efforts to avoid such outcomes but reviewed that they may occur despite our best efforts Confirmed that sterlization is desired Patient understands that tubal ligation is an irreversible process that will result in future infertility Written informed consent obtained. 2. Previous low transverse section x2 3. Desires permanent sterility -She desires a tubal ligation after her section. We discussed the risks, alternatives, benefits to this. We discussed long-acting control such as IUDs and implants. We had discussion about partner vasectomy and the pros and cons to this including a smaller surgery, and easier recovery. We discussed the general risk of surgery including infection, bleeding, damage to other organs, needing a larger incision. Specific to tubal ligation, we discussed the risk of regret, and discussed that regret is greater in those under 30, without children, and not in stable relationships. Patient says she is confident in her decision to not have any more children. We also discussed the risk of failure, and that less than 1/100 tubal ligation fail, but if it did, she would be at increased risk of ectopic . Patient desires to proceed with bilateral tubal ligation. 3. A 1 gestational diabetes, diet controlled 4. Elderly multigravida 5. GBS positive
[2021-08-11] MEDS ORDERED: BUPIVACAINE 0.25% PF 30 ML VIAL ONE (07:39)
[2021-08-11] MEDS ORDERED: LIDOCAINE MPF 2%-EPI 1:200000 20 ML VIAL ONE (07:39)
[2021-08-11] MEDS ORDERED: NALBUPHINE 10 MG/ML AMP IVP PRN (08:04)
[2021-08-11] MEDS ORDERED: ATROPINE ABBOJECT 1 MG/10 ML SYRINGE IVP PRN (08:04)
[2021-08-11] MEDS ORDERED: diphenhydrAMINE INJ 50 MG/ML VIAL IVP PRN (08:04)
[2021-08-11] MEDS ORDERED: fentaNYL 100 MCG/2 ML VIAL IVP PRN (08:04)
[2021-08-11] MEDS ORDERED: ePHEDrine 50 MG/ML VIAL IVP PRN ×2 (08:04)
[2021-08-11] MEDS ORDERED: HYDROmorphone 0.5 MG/0.5 ML SYRINGE IVP PRN (08:04)
[2021-08-11] MEDS ORDERED: METOCLOPRAMIDE 10 MG/2 ML VIAL IVP PRN ×2 (08:04)
[2021-08-11] MEDS ORDERED: NALOXONE 0.4 MG/ML VIAL IVP PRN ×2 (08:04)
[2021-08-11] MEDS ORDERED: MORPHINE 2 MG/ML CARPUJECT IVP PRN (08:04)
[2021-08-11] MEDS ORDERED: ONDANSETRON 4 MG/2 ML VIAL IVP PRN ×2 (08:04)
[2021-08-11] MEDS ORDERED: OXYTOCIN 10 UNIT/ML VIAL ONE ×2 (08:05→08:48)
[2021-08-11] MEDS ORDERED: ePHEDrine 50 MG/ML VIAL IVP ONE ×2 (08:05→11:15)
[2021-08-11] MEDS ORDERED: KETOROLAC 30 MG/ML VIAL ONE (08:46)
[2021-08-11] MEDS ORDERED: ROPIVACAINE 0.5% PF 20 ML AMPULE ONE (08:57)
[2021-08-11] MEDS ORDERED: LACTATED RINGERS 1,000 ML IV SCH ×2 (09:00→10:00)
[2021-08-11] MEDS ORDERED: OXYTOCIN/SODIUM CHLORIDE 500 ML IV PRN (09:55)
[2021-08-11] MEDS ORDERED: SODIUM CHLORIDE FLUSH 0.9% 10 ML SYRINGE IVP PRN (09:55)
[2021-08-11] MEDS ORDERED: ONDANSETRON ODT 4 MG TABLET TL PRN (09:55)
[2021-08-11] MEDS ORDERED: LACTATED RINGERS 1,000 ML IV ONE (10:05)
--- NOTE | 2021-08-11 10:07 | OPERATIVE REPORT ---
Operative Report - General Admit Date: 08/11/21 Procedure Date: 08/11/21 Planned Procedure: Repeat low transverse section Procedure Performed: Repeat low-transverse section with bilateral salpingectomy - Procedure Note Primary Surgeon: Nemesio Minor MD Secondary Surgeon: Joann Membreno MD Anesthesia Provider: Leonor ROMANO CRNA Anesthesia Technique: Spinal Pathology: Bilateral uterine tubes Estimated Blood Loss (mL): 600 Findings: Some fusion of abdominal muscles to abdominal wall. Right side of uterus fused anterior abdominal wall. Complications: None - Other Other Information/Narrative: Preoperative diagnosis: 39 weeks gestation Previous low transverse section x2 Desires sterility A1 gestational diabetes, managed with diet and exercise GBS positive Postoperative diagnosis 39 weeks gestation Previous low transverse section x2 Desires sterility A1 gestational diabetes, managed with diet and exercise GBS positive status post repeat low transverse section and bilateral salpingectomy Procedure details: Repeat section was recommended. Risks, benefits and alternatives were discussed including but not limited to infection, bleeding that may require blood products or hysterectomy for life saving measures, injury to surrounding organs including but not limited to bowel, bladder, ureters, tubes and ovaries and/or the baby. Should injury occur it could require longer/additional surgery to repair. The patient stated understanding and desired to proceed. All questions were answered posed by patient. Prior to being taken to the OR, to grams of cefazolin IV was administered. The patient was taken to the operating room where regional anesthesia was found to be adequate. She was then prepared and draped in the usual sterile fashion in the dorsal supine position with a leftward tilt displacing the uterus. Rosales was draining to gravity. SCDs were on bilateral lower extremities. A pfannenstiel skin incision was then made with the scalpel through her previous incision site and carried through to the underlying layer of fascia. The fascia was incised in the midline and the incision extended laterally with the Corral scissors. The superior aspect of the facial incision was then grasped with the Jonathan clamps, elevated and the underlying rectus muscles dissected off sharply. Attention was then turned to the inferior aspect of this incision which in a similar fashion was grasped, elevated with the Jonathan clamps and the rectus muscle dissected off sharply. The rectus muscles were in the midline. The peritoneum identified, grasped with the hemostats and entered sharply with the Metzenbaum scissors. The peritoneal incision was then extended superiorly and inferiorly with good visualization of the bladder. The bladder blade was inserted. At this time the right side of the anterior abdominal wall was noted to be fused to the anterior portion of the uterus. The lower uterine segment was identified and incised in a transverse fashion with the scalpel. The uterine incision was then extended bluntly laterally. Artificial rupture of membranes demonstrated clear fluid. The bladder blade was removed. The fetus was in a cephalic presentation. The infants head delivered atraumatically. The anterior shoulders were delivered followed by the posterior shoulders then the remainder of the body. The infants mouth and nose were bulb suctioned. The umbilical cord was clamped times two and cut. The infant was taken to the recovery room for transition. Cord blood gases were obtained. A knot was noted in the proximal cord. The placenta was removed with gentle traction. Oxytocin was added to intravenous fluids and allowed to run freely. The uterus was exteriorized and cleared of all clots and debris. The uterine incision was inspected and found to be without any extensions and was repaired with 0 Vicryl in a running, locked fashion. A second imbricating layer was performed. Upon inspection, the repaired hysterotomy was found to be hemostatic. After hemostasis was noted, the right uterine tube was grasped with 2 Mcmillan clamps, and starting at the distal end, the mesosalpinx was grasped with the LigaSure device, cauterized and cut. This was followed up the remainder of the tube until the cornua where the tube was cauterized and transected. A similar procedure was performed on the left side. The uterus was firm and returned to the abdomen. The gutters were cleared of all clots and debris. The muscles were reapproximated with 2-0 Vicryl. The fascia was reapproximated with 0 Vicryl in a running fashion. The subcutaneous tissue was closed with 2-0 chromic. The skin was closed in a subcuticular fashion with 3-0 Vicryl. The incision was covered with Steri-Strips then adhesive bandage was placed over top. The patient tolerated the procedure well. Sponge, lap and needle counts were correct times three. The patient was taken to the recovery room in stable condition. I appreciate the assistance of Dr. Membreno during this procedure, and her assistance in retraction, visualization, dissection, and overall assistance during the case were instrumental to the patient's wellbeing.
--- NOTE | 2021-08-11 11:25 | ANESTHESIA POST OP EVALUATION ---
Anesthesia Post Eval - Post Anesthesia Eval Vitals: Last Vital Signs Temp 36.9 C 08/11/21 10:53 Pulse 75 08/11/21 10:53 Resp 17 08/11/21 10:53 BP 120/76 08/11/21 10:53 Pulse Ox 100 08/11/21 10:53 CV Function Including HR & BP: Stable Pain Control: Satisfactory Nausea & Vomiting: Negative Mental Status: Baseline Respiratory Status: Airway Patent Hydration Status: Satisfactory Anesthesia Complications: None
[2021-08-11] MEDS: KETOROLAC 15 MG/ML VIAL IVP SCH ×2 (15:19→21:28)
[2021-08-11] MEDS ORDERED: SODIUM CHLORIDE FLUSH 0.9% 10 ML SYRINGE IVP SCH (17:00)
[2021-08-11] MEDS: ACETAMINOPHEN 500 MG TABLET PO SCH (18:01)
[2021-08-11] MEDS: DOCUSATE SODIUM 100 MG CAPSULE PO SCH (21:28)
[2021-08-12] MEDS: ACETAMINOPHEN 500 MG TABLET PO SCH ×3 (03:04→21:12)
[2021-08-12] MEDS: SIMETHICONE CHEW 80 MG TABLET PO PRN ×3 (03:04→13:14)
[2021-08-12] MEDS: KETOROLAC 15 MG/ML VIAL IVP SCH (04:05)
[2021-08-12 05:38] LABS: BASOPHILS % (AUTO) 0.3 %; EOSINOPHILS % (AUTO) 0.2 %; HCT - HEMATOCRIT 28.1 % (37.0-47.0); HGB - HEMOGLOBIN 9.3 g/dL (12.0-16.0); LYMPHOCYTES # (AUTO) 1.1 10^3/uL (1.5-3.5); LYMPHOCYTES % (AUTO) 11.9 %; MEAN CORPUSCULAR HEMOGLOBIN 29.5 pg (27.0-31.0); MEAN CORPUSCULAR HGB CONC 33.1 g/dL (32.0-36.0); MEAN CORPUSCULAR VOLUME 89.2 fL (81.0-99.0); MEAN PLATELET VOLUME 11.3 fL (7.9-10.8); MONOCYTES # (AUTO) 0.4 10^3/uL (0.0-1.0); MONOCYTES % (AUTO) 4.4 %; NEUTROPHILS # (AUTO) 7.8 10^3/uL (1.5-6.6); NEUTROPHILS % (AUTO) 82.9 %; PLT - PLATELET COUNT 147 10^3/uL (130-450); RED BLOOD COUNT 3.15 10^6/uL (4.20-5.40); RED CELL DISTRIBUTION WIDTH 14.5 % (12.0-15.0); WHITE BLOOD COUNT 9.4 x10^3/uL (4.8-10.8)
[2021-08-12] MEDS ORDERED: SERTRALINE 50 MG TABLET PO SCH (09:00)
[2021-08-12] MEDS: IBUPROFEN 600 MG TABLET PO SCH ×3 (09:32→23:10)
[2021-08-12] MEDS: oxyCODONE 5 MG TABLET PO PRN ×4 (09:32→23:09)
[2021-08-12] MEDS: DOCUSATE SODIUM 100 MG CAPSULE PO SCH ×2 (09:34→21:11)
[2021-08-12] MEDS ORDERED: KETOROLAC 15 MG/ML VIAL IVP SCH (10:10)
--- NOTE | 2021-08-12 12:53 | PROVIDER PROGRESS NOTE ---
Progress Note Subjective HD#2 PPD#1 Patient reports she is doing well. Lochia appropriate. Denies heavy bleeding. Minimal ambulation. Pelvic and abdominal pain well-controlled. Tolerating oral intake. Diet: Regular. Voiding without difficulty. Passing flatus. Denies BM. Patient is bonding with baby in room Breast feeding going well. She is supplementing with formula. Denies feeling lightheaded, dizzy or excessively fatigued. Control: Tubal ligation Objective Temp Pulse Resp BP Pulse Ox 98.2 F 87 16 104/62 96 08/12/21 09:00 08/12/21 09:00 08/12/21 09:00 08/12/21 09:00 08/12/21 09:00 General: Alert, oriented, no apparent distress. Cardiovascular: Regular rate. Regular rhythm. No murmur. Lungs: Clear to auscultation. Good air movement. No crackles or wheezes Abdomen: Uterus firm. Below umbilicus. Normal active bowel sounds. No guarding or rebound. Incision: Bandage in place. Extremities: Normal pedal pulses. No edema. No cords. Assessment and Plan day 1. -Routine care -Anticipate discharge tomorrow. Encouraged to increase ambulation and getting used to normal home activity for the rest of the day. She think she needs 1 more day in the hospital, a as she has not tolerating home activity yet. Nd given her lack of ambulation I think this is appropriate. Will likely discharge tomorrow.
[2021-08-13] MEDS: ACETAMINOPHEN 500 MG TABLET PO SCH (05:13)
[2021-08-13] MEDS: IBUPROFEN 600 MG TABLET PO SCH ×2 (05:13→11:24)
[2021-08-13] MEDS: oxyCODONE 5 MG TABLET PO PRN ×2 (05:14→09:16)
[2021-08-13] MEDS: DOCUSATE SODIUM 100 MG CAPSULE PO SCH (09:16)
--- NOTE | 2021-08-13 09:23 | DISCHARGE SUMMARY ---
Discharge Summary Admit Date: 08/11/21 Discharge Date: 08/13/21 Discharging Provider: Nemesio Minor MD Code Status: Attempt Resuscitation Condition at Discharge: Good Discharge Disposition: 01 Home, Self Care - DIAGNOSES Admission Diagnoses: 39 weeks gestation, Previous low transverse section x2 Discharge Diagnoses with Status of Each Condition: 39 weeks gestation: Delivered Previous low transverse section x2: Status post repeat low transverse section Desire sterility: Status post bilateral tubal ligation : Normal - HPI History of Present Illness: Patient reports she is doing well. Lochia appropriate. Denies heavy bleeding. Ambulating. Pelvic and abdominal pain well-controlled. Tolerating oral intake. Diet: Regular. Voiding without difficulty. Passing flatus. Denies BM. Patient is bonding with baby in room Breast feeding going well. Denies feeling lightheaded, dizzy or excessively fatigued. Control: Status post bilateral tubal ligation Objective Temp Pulse Resp BP Pulse Ox 98.2 F 81 18 114/55 L 97 08/13/21 05:00 08/13/21 05:00 08/13/21 05:00 08/13/21 05:00 08/13/21 05:00 General: Alert, oriented, no apparent distress. Cardiovascular: Regular rate. Regular rhythm. No murmur. Lungs: Clear to auscultation. Good air movement. No crackles or wheezes Abdomen: Uterus firm. Below umbilicus. Normal active bowel sounds. No guarding or rebound. Incision: Clean, dry, and intact. Extremities: Normal pedal pulses. No edema. No cords. - HOSPITAL COURSE Hospital Course: Patient was a 36-year-old G3 now P3 who was admitted at 39 weeks 0 days gestation for repeat low transverse section thinks he was complicated by A1 gestational diabetes as well as to previous low transverse sections. Surgery was uncomplicated, and she had 2 days of postoperative recovery with a good course. No significant events while in the hospital, she was discharged on postoperative day 2 with her . - ALLERGIES Allergies/Adverse Reactions: Allergies Allergy/AdvReac Type Severity Reaction Status Date / Time No Known Drug Allergies Allergy Verified 06/16/19 15:47 - MEDICATIONS Home Medications: Ambulatory Orders Medication Instructions Recorded Confirmed No122/Iron/Folic Acid 1 each PO DAILY 06/21/21 06/21/21 [ Multi Tablet] - LABS Result Diagrams: 08/12/21 05:30 - FOLLOW UP Follow Up: [address] [facility] - TIME SPENT Time Spent in Discharge (Minutes): 20
[2021-08-13 09:53] VITALS: BP 117/67
[2021-08-13] MEDS: SIMETHICONE CHEW 80 MG TABLET PO PRN (11:24)
== END 2021-08-13 11:59 | disposition home or self-care (01) | DRG 785 ==
LOC: FBP 05:32
PROVIDERS: ADMIT Obstetrics & Gynecology; ATTEND Obstetrics & Gynecology
PROC: 0UB70ZZ Excision of Bilateral Fallopian Tubes, Open Approach (ICD-10-PCS; 2021-08-11)
PROC: 10D00Z1 Extraction of Products of Conception, Low, Open Approach (ICD-10-PCS; principal; 2021-08-11 07:30)
DX: O34.211 Maternal care for low transverse scar from previous cesarean delivery (principal); O24.420 Gestational diabetes mellitus in childbirth, diet controlled; Z37.0 Single live birth; Z30.2 Encounter for sterilization; O99.824 Streptococcus B carrier state complicating childbirth; O99.892 Other specified diseases and conditions complicating childbirth; N73.6 Female pelvic peritoneal adhesions (postinfective); Z3A.39 39 weeks gestation of pregnancy
CPT/HCPCS: 36415; 85025; A9270; J2274; J7120; 86850; 86900; 86901; 86920

== ENCOUNTER 2023-04-18 15:25 | Outpatient (CLI) | payer MEDICAID ==
--- NOTE | 2023-04-19 11:02 | Mammography Report ---
BILATERAL DIGITAL SCREENING MAMMOGRAM 3D/2D WITH AUGMENTATION: 04/18/2023 CLINICAL: Baseline exam. Routine screening. No prior exams were available for comparison. Both breasts are heterogeneously dense, which may obscure small masses (category c / 51-75% glandular tissue). There is a 0.8 cm oval focal asymmetry with an obscured margin in the left breast at 1 o'clock supervisor phosphorus processing ior depth. No other significant masses, calcifications, or other findings are seen in either breast. The implan ts are intact. IMPRESSION: INCOMPLETE: NEEDS ADDITIONAL IMAGING EVALUATION The 0.8 cm oval focal asymmetry in the left breast is indeterminate. Additional views with possible ultrasound are recommended. Based on the Tyrer Cuzick model (a risk assessment model) the patients lifetime risk is 13.7% and he r 10 year risk is 1.7%. According to the ACR, ACS, and NCCN guidelines, an annual breast MRI exam billy ng with mammogram is recommended if the patients lifetime risk is 20% or greater. This exam was interpreted at Station ID: [id number]. NOTE: For mammograms, a report in lay terms will be sent to the patient. Approximately 15% of breast malignancies will not be visualized mammographically. In the management of a palpable breast mass, a negative mammogram must not discourage biopsy of a clinically suspicious lesion. Electronically Signed By: Eloy Lyman M.D. aty/:04/19/2023 07:17:54 ACR BI-RADS Category 0: Incomplete 3340F PARENCHYMAL PATTERN: (D) - The breast(s) demonstrate(s) heterogeneously dense fibroglandular rodrigo iglesias. BI-RADS CATEGORY: (0) - 0 Mammo and US [id number] Immediate follow-up LATERALITY: (L)
== END 2023-04-18 15:26 | disposition home or self-care (01) ==
LOC: DI.N 15:25
PROVIDERS: ATTEND Obstetrics & Gynecology
DX: Z12.31 Encounter for screening mammogram for malignant neoplasm of breast (principal); R92.8 Other abnormal and inconclusive findings on diagnostic imaging of breast

== ENCOUNTER 2023-11-12 14:03 | Outpatient (CLI) | payer MEDICAID ==
--- NOTE | 2023-11-13 16:41 | Ultrasound Report ---
LIMITED ULTRASOUND OF LEFT BREAST: 11/12/2023 CLINICAL: 6 month follow-up. Comparison is made to exams dated: 05/17/2023 ultrasound, 05/17/2023 mammogram, and 04/18/[address] [facility]. Color flow ultrasound of the left breast 2 o'clock region was performed. Cagle scale images of the r eal-time examination were reviewed. There is a 0.7 cm x 0.7 cm x 0.4 cm oval mass with a circumscribed margin in the left breast at 2 o'c lock middle depth 7 cm from the nipple. This oval mass is hypoechoic. This abnormality is not signi ficantly changed. Color flow imaging demonstrates that there is no vascularity present. IMPRESSION: PROBABLY BENIGN The 0.7 cm x 0.7 cm x 0.4 cm oval mass in the left breast most likely is a complicated cyst or a fibr oadenoma and is probably benign. A follow-up left ultrasound in 6 months is recommended to demonstrate stability. The patient will be due for bilateral mammograms at that same visit. Findings and recommendations were conveyed to the patient at time of exam. This exam was interpreted at Station ID: [id number]. Electronically Signed By: Martha yang/:11/12/2023 14:39:57 Ultrasound BI-RADS: 3 Probably benign BI-RADS CATEGORY: (3) - 3 Ultrasound [id number] 6 month follow-up LATERALITY: (L)
== END 2023-11-12 14:04 | disposition home or self-care (01) ==
LOC: DI 14:03
PROVIDERS: ATTEND Obstetrics & Gynecology
DX: N63.21 Unspecified lump in the left breast, upper outer quadrant (principal)